=== PATIENT | female | born 1960 | race African-American/Black ===

== ENCOUNTER 2018-07-09 18:24 | Emergency (ER) | payer OTHER ==
[2018-07-09 18:54] VITALS: BP 128/84; PULSE 78; BMI 27.3
[2018-07-09 21:15] LABS: BASO % 0.5 % (0-2.0); EOS % 2.1 % (0-4.5); HEMATOCRIT 35.1 % (32.4-45.2); LYMPH % 38.4 % (8-40); MCH 28.2 pg (25.7-33.7); MCHC 34.1 g/dl (32.0-36.0); MEAN CELL VOLUME 82.8 fl (80-96); MEAN PLT VOLUME 7.4 fl (7.5-11.1); PLATELET COUNT 164 K/MM3 (134-434); RBC 4.24 M/mm3 (3.60-5.2); RDW 13.9 % (11.6-15.6); WHITE BLOOD COUNT 3.4 K/mm3 (4.0-10.0)
[2018-07-09 21:16] LABS: URINE APPEARANCE CLEAR; URINE BILIRUBIN NEGATIVE (<2.0 mg/dL); URINE COLOR LTYELLOW; URINE GLUCOSE (UA) NEGATIVE (NEGATIVE); URINE KETONE NEGATIVE (NEGATIVE); URINE LEUK ESTERASE NEGATIVE (NEGATIVE); URINE NITRITE NEGATIVE (NEGATIVE); URINE PROTEIN NEGATIVE (NEGATIVE); URINE UROBILINOGEN NEGATIVE mg/dL (0.2-1.0)
[2018-07-09 21:49] LABS: ALBUMIN 3.4 g/dl (3.4-5.0); ALK PHOS 61 U/L (45-117); ANION GAP 4 MMOL/L (8-16); BILIRUBIN,TOTAL 0.4 mg/dL (0.2-1); BLOOD UREA NITROGEN 13 mg/dL (7-18); CHLORIDE 108 mmol/L (98-107); CO2 29 mmol/L (21-32); CREATININE 0.9 mg/dL (0.55-1.3); GLUCOSE,RANDOM 92 mg/dL (74-106); POTASSIUM 4.6 mmol/L (3.5-5.1); SGOT/AST 18 U/L (15-37); SGPT/ALT 21 U/L (13-61); SODIUM 141 mmol/L (136-145); TOT PROT 6.8 g/dl (6.4-8.2)
--- NOTE | 2018-07-09 22:10 | PDOC ---
History of Present Illness - General Chief Complaint: Pain, Acute Stated Complaint: ABDOMINAL PAIN Time Seen by Provider: 07/09/18 19:56 History Source: Patient Exam Limitations: No Limitations Past History - Past Medical History Allergies/Adverse Reactions: Allergies Allergy/AdvReac Type Severity Reaction Status Date / Time No Known Drug Allergies Allergy Verified 07/09/18 18:50 POLLEN Allergy Mild SNEEZING Uncoded 07/09/18 18:50 Home Medications: Ambulatory Orders Tamoxifen Citrate 20 mg PO HS 12/30/14 levETIRAcetam [Keppra -] 500 mg PO BID 12/30/14 Cholecalciferol (Vitamin D3) [Vitamin D3] 1,000 unit PO HS 09/04/17 Vit B Comp/C/Folic/Iron/Vit E [Vitamin B Complex Tablet] 1 each PO DAILY Anemia: Yes (TREATED WITH IRON IN THE PAST) Asthma: No Cancer: Yes (RIGHT BREAST-12/2013) Cardiac Disorders: No CVA: No COPD: No CHF: No Dementia: No Diabetes: No GI Disorders: No Disorders: No HTN: No Hypercholesterolemia: Yes (DIET CONTROLLED) Liver Disease: No Seizures: Yes (DX 2002 S/P BRAIN TUMOR) Thyroid Disease: No - Surgical History Abdominal Surgery: No Appendectomy: No Cardiac Surgery: No Cholecystectomy: No Lung Surgery: No Neurologic Surgery: Yes (BRAIN TUMOR REMOVED-2002) Orthopedic Surgery: Yes (RIGHT SHOULDER ARTHROSCOPY 2014) - Immunization History Immunization Up to Date: Yes - Suicide/Smoking/Psychosocial Hx Smoking History: Never smoked Have you smoked in the past 12 months: No Hx Alcohol Use: Yes (OCCASIONAL) Drug/Substance Use Hx: No Substance Use Type: Alcohol Hx Substance Use Treatment: No *Physical Exam - Vital Signs Last Vital Signs Temp Pulse Resp BP Pulse Ox 97.9 F 78 18 128/84 100 07/09/18 18:51 07/09/18 18:51 07/09/18 18:51 07/09/18 18:51 07/09/18 18:51 - Physical Exam General Appearance: No: Apparent Distress Respiratory/Chest: positive: Lungs Clear, Normal Breath Sounds. negative: Respiratory Distress Cardiovascular: positive: Regular Rhythm, Regular Rate, S1, S2. negative: Murmur Gastrointestinal/Abdominal: positive: Normal Bowel Sounds, Soft. negative: Tender, Distended, Guarding, Rebound Musculoskeletal: negative: CVA Tenderness Neurologic: positive: Fully Oriented, Alert, Normal Mood/Affect Moderate Sedation - Procedure Monitoring Vital Signs: Procedure Monitoring Vital Signs Temperature 97.9 F 07/09/18 18:51 Pulse Rate 78 07/09/18 18:51 Respiratory Rate 18 07/09/18 18:51 Blood Pressure 128/84 07/09/18 18:51 O2 Sat by Pulse Oximetry (%) 100 07/09/18 18:51 ED Treatment Course - LABORATORY CBC & Chemistry Diagram: 07/09/18 21:08 07/09/18 21:08 - ADDITIONAL ORDERS Additional order review: Laboratory Results 07/09/18 07/09/18 21:08 21:08 Sodium 141 Potassium 4.6 Chloride 108 H Carbon Dioxide 29 Anion Gap 4 L BUN 13 Creatinine 0.9 Creat Clearance w eGFR > 60 Random Glucose 92 Calcium 9.0 Total Bilirubin 0.4 AST 18 ALT 21 Alkaline Phosphatase 61 Total Protein 6.8 Albumin 3.4 Urine Color Ltyellow Urine Appearance Clear Urine pH 8.0 D Ur Specific [place] 1.014 Urine Protein Negative Urine Glucose (UA) Negative Urine Ketones Negative Urine Blood Negative Urine Nitrite Negative Urine Bilirubin Negative Urine Urobilinogen Negative Ur Leukocyte Esterase Negative 07/09/18 21:08 RBC 4.24 MCV 82.8 MCHC 34.1 RDW 13.9 MPV 7.4 L Neutrophils % 49.0 D Lymphocytes % 38.4 D Monocytes % 10.0 D Eosinophils % 2.1 Basophils % 0.5 Medical Decision Making - Medical Decision Making 58 y/o F hx of brain tumor, breast CA s/p B/L mastectomies (in remission), seizures (on Keppra) presents wt LLQ abd pain radiating around whole abdomen x 2 weeks, worsening the past 2 days. Patient states it feels like "hunger pain". She has been eating food without improvement in pain. Denies fever, chills, sob , cp, n/v/d, black/bloody stools, constipation, urinary complaints. Patient is having regular bowel movements. Denies any prior abdominal surgeries. PE unremarkable; patient appears comfortable Labs reviewed and negative Less suspicious for any acute pathology given how well patient appears Patient advised follow-up with her PCP 07/09/18 22:05 *DC/Admit/Observation/Transfer Diagnosis at time of Disposition: Abdominal pain Qualifiers: Abdominal location: left lower quadrant Qualified Code(s): R10.32 - Left lower quadrant pain - Discharge Dispostion Disposition: HOME Condition at time of disposition: Good Decision to Admit order: No - Referrals Referrals: Hubert Crow MD [Primary Care Provider] - 3 days - Patient Instructions Printed Discharge Instructions: DI for Abdominal Pain-Adult Additional Instructions: Thank you for choosing [facility]. It was a pleasure taking care of you. You were seen here for abdominal pain Your labs here were unremarkable Please follow-up with your PCP in 3 days for further care Return to the Emergency Department if your symptoms worsen or persist, you have fever, shortness of breath, chest pain, severe abdominal pain, vomiting, black or bloody stools or other concerning symptoms. - Post Discharge Activity
[2018-07-09 22:16] VITALS: TEMP 97.8
== END 2018-07-09 22:39 | disposition home or self-care (01) ==
LOC: JER 18:24
DX: R10.32 Left lower quadrant pain (principal); Z85.3 Personal history of malignant neoplasm of breast; D49.6 Neoplasm of unspecified behavior of brain
CPT/HCPCS: 36415; 80053; 81003; 85025; 99282-25

== ENCOUNTER 2019-03-24 04:45 | Day surgery (SDC) | payer OTHER ==
[2019-03-21 08:49] VITALS: BMI 26.7
[2019-03-24] MEDS ORDERED: CEFAZOLIN 2 GM in DEXTROSE 5%-WATER - 100 ML IVPB ONE (07:15)
[2019-03-24] MEDS ORDERED: PHENAZOPYRIDINE HCL 100 MG TABLET (FP) PO ONE ×2 (07:15→07:50)
--- NOTE | 2019-03-24 07:33 | HP ---
History & Physical Update - History History: No Change - Physical Physical: No Change - Assessment Assessment: No Change - Plan Plan: No Change (No change since Cardiology clearance on 03/21 (Dr Tammy Song). No history of DVT/PE. Off Keppra, no seizures for "years".)
[2019-03-24] MEDS ORDERED: PROPOFOL 20 ML ONE (07:52)
[2019-03-24] MEDS ORDERED: SUCCINYLCHOLINE CHLORIDE 200 MG/10 ML SYRINGE ONE (07:52)
[2019-03-24] MEDS ORDERED: DESFLURANE GAS 240 ML BOTTLE IH ONE (07:52)
[2019-03-24] MEDS ORDERED: ROCURONIUM BROMIDE 50 MG/5 ML SYRINGE ONE (07:53)
[2019-03-24] MEDS ORDERED: MIDAZOLAM HCL 2 MG/2 ML SINGLE DOSE VIAL ONE (07:53)
[2019-03-24] MEDS ORDERED: LIDOCAINE HCL/PF 2% SDV 5ML VIAL ONE (07:55)
[2019-03-24] MEDS ORDERED: IBUPROFEN 800 MG/8 ML IJ IVPB PRN (08:05)
[2019-03-24] MEDS ORDERED: LACTATED RINGERS SOLUTION 1,000 ML IV SCH (08:15)
[2019-03-24] MEDS ORDERED: ceFAZolin SODIUM 1 GM VIAL IVPB ONE (08:25)
[2019-03-24] MEDS ORDERED: BUPIVACAINE HCL/PF 0.5% (5MG/ML) 10 ML VIAL IJ ONE ×2 (08:27→10:05)
[2019-03-24] MEDS ORDERED: ONDANSETRON 4 MG/2 ML VIAL IVPUSH PRN ×2 (08:50→08:51)
[2019-03-24] MEDS ORDERED: oxyCODONE HCL 5 MG TABLET PO PRN (08:50)
[2019-03-24] MEDS ORDERED: PROMETHAZINE HCL 25 MG/1 ML VIAL IVPUSH PRN (08:50)
[2019-03-24] MEDS ORDERED: DEXAMETHASONE SOD PHOSPHATE 4 MG/1 ML VIAL IVPUSH PRN (08:51)
[2019-03-24] MEDS ORDERED: PROMETHAZINE HCL 25 MG/1 ML VIAL IVPB PRN (08:51)
[2019-03-24] MEDS ORDERED: HYDROmorphone *PCA* 10MG/50ML DISP.SYRIN PCA SCH (09:00)
[2019-03-24] MEDS ORDERED: GLYCOPYRROLATE 0.2 MG/1 ML VIAL ONE (09:42)
[2019-03-24] MEDS ORDERED: NEOSTIGMINE METHYLSULFATE 0.5 MG/ML - 10 ML MDV ONE (09:42)
[2019-03-24] MEDS ORDERED: KETOROLAC TROMETHAMINE 30 MG/1 ML VIAL ONE (09:42)
[2019-03-24] MEDS ORDERED: HYDROmorphone *PCA* 10MG/50ML DISP.SYRIN PCA ONE (10:50)
[2019-03-24] MEDS ORDERED: HYDROmorphone *PCA* 10MG/50ML DISP.SYRIN ONE (10:54)
[2019-03-24] MEDS ORDERED: SIMETHICONE 80 MG TAB.CHEW (FP) PO PRN (11:04)
[2019-03-24] MEDS ORDERED: RANITIDINE HCL 150 MG TABLET (FP) PO PRN (11:05)
--- NOTE | 2019-03-24 11:14 | SURG ---
Surgery Personnel Generalist Manager Note Personnel Generalist Manager: Aleta Alicea PA-C (Suzy) Date of Service: 03/24/19 Diagnosis: Endometrial hyperplasia, h/o breast cancer Procedure: Operation: Robotic hysterectomy, bilateral salpingectomy I was present for the entirety of the operative procedure. For further detail, please refer to operative report. Visit type - Case Type Case Type: Scheduled - Emergency Emergency Visit: No - New patient This patient is new to me today: Yes Date on this admission: 03/24/19 - Critical Care Critical Care patient: No
--- NOTE | 2019-03-24 11:14 | OP ---
Operative Note - Note: Operative Date: 03/24/19 Pre-Operative Diagnosis: Endometrial hyperplasia, h/o breast cancer Operation: Robotic hysterectomy, bilateral salpingectomy Findings: as dictated Post-Operative Diagnosis: Same as Pre-op Surgeon: Lilo Hines Business Line Controller: Aleta Alicea Anesthesiologist/DIRECTOR PEDIATRIC: Sina Oneal Anesthesia: General, Local (15cc .5% Marcaine injected to port sites at completion of case) Specimens Removed: uterus and bilateral fallopian tubes Estimated Blood Loss (mls): 50 (ml) Drains, Volume Out (mls): 200 (cc orange urine (pyridium)) Fluid Volume Replaced (mls): 500 (ml LR) Operative Report Dictated: Yes
[2019-03-24 11:30] LABS: HEMATOCRIT 33.6 % (32.4-45.2); HEMOGLOBIN 10.9 GM/dL (10.7-15.3); MCH 27.3 pg (25.7-33.7); MCHC 32.5 g/dl (32.0-36.0); MEAN CELL VOLUME 83.9 fl (80-96); MEAN PLT VOLUME 8.1 fl (7.5-11.1); PLATELET COUNT 139 K/MM3 (134-434); RBC 4.01 M/mm3 (3.60-5.2); RDW 14.1 % (11.6-15.6); WHITE BLOOD COUNT 4.9 K/mm3 (4.0-10.0)
[2019-03-24 18:54] LABS: BLOOD UREA NITROGEN 14.6 mg/dL (7-18); CALCIUM 9.3 mg/dL (8.5-10.1); CREATININE 0.8 mg/dL (0.55-1.3); POTASSIUM 4.6 mmol/L (3.5-5.1)
[2019-03-24 19:04] LABS: BASO % 0.1 % (0-2.0); EOS % 0.1 % (0-4.5); HEMATOCRIT 34.8 % (32.4-45.2); LYMPH % 10.9 % (8-40); MCH 26.9 pg (25.7-33.7); MCHC 31.7 g/dl (32.0-36.0); MEAN CELL VOLUME 84.8 fl (80-96); MEAN PLT VOLUME 8.2 fl (7.5-11.1); MONO % 3.5 % (3.8-10.2); NEUT % 85.4 % (42.8-82.8); PLATELET COUNT 141 K/MM3 (134-434); RBC 4.11 M/mm3 (3.60-5.2); RDW 14.5 % (11.6-15.6); WHITE BLOOD COUNT 6.7 K/mm3 (4.0-10.0)
[2019-03-24] MEDS: CEFAZOLIN 1 GM in DEXTROSE 5%-WATER - 50 ML IVPB SCH (19:37)
[2019-03-24] MEDS ORDERED: TAMOXIFEN CITRATE 10 MG TABLET PO SCH (22:00)
[2019-03-25] MEDS: CEFAZOLIN 1 GM in DEXTROSE 5%-WATER - 50 ML IVPB SCH (01:38)
[2019-03-25 06:21] VITALS: BP 123/55; PULSE 82; TEMP 99.2
[2019-03-25] MEDS ORDERED: HYDROmorphone HCL 2 MG TABLET PO PRN (08:00)
[2019-03-25] MEDS ORDERED: oxyCODONE HCL 5 MG TABLET PO PRN ×2 (08:00→08:55)
--- NOTE | 2019-03-25 08:12 | PN ---
Progress Note (short form) - Note Progress Note: POD 1, s/p Robotic hysterectomy, bilateral salpingectomy Pt seen and examined this Am. Reports she is feeling well. Has been oob to the restroom, voiding without issue. minimal vaginal bleeding. Tolerating PO. Denies n/v/d, cp/sob. Vital Signs Temp 99.2 F 03/25/19 06:00 Pulse 82 03/25/19 06:00 Resp 18 03/25/19 06:00 BP 123/55 L 03/25/19 06:00 Pulse Ox 100 03/24/19 21:00 Intake & Output 03/24/19 03/24/19 03/25/19 11:59 23:59 11:59 Intake Total 800 1020 1175 Output Total 250 500 400 Balance 550 520 775 Intake: IV 800 1125 Lactated Ringers Solution 1125 1,000 ml @ 125 mls/hr IV ASDIR CONNIE Rx#: [id number] IVPB 50 50 Oral 970 Output: Urine 200 500 400 Seth 300 400 Estimated Blood Loss 50 Other: Voiding Method Indwelling Catheter CBC, BMP 03/25/19 07:45 03/25/19 07:45 Gen: awake, alert, nad Resp: unlabored on RA Abdo: soft, nt/nd, all incisions with dressings in place, c/d/i. A/P: 58 y/o F w/ PMHx ?meningioma s/p resection, breast cancer s/p mastectomy with reconstruction, endometrial hyperplasia, now POD 1, s/p Robotic hysterectomy, bilateral salpingectomy. VSS, labs yesterday evening No issues overnight, pain controlled -AM labs pending -stable -[employer]OCIATE d/c'ed (pt had 0/0 attempts overnight) -Oral pain regimen in place -Plan for d/c later today d/w attending Dr Hines
[2019-03-25 08:24] LABS: BASO % 0.3 % (0-2.0); EOS % 0.6 % (0-4.5); HEMATOCRIT 29.9 % (32.4-45.2); HEMOGLOBIN 9.6 GM/dL (10.7-15.3); LYMPH % 26.3 % (8-40); MCHC 32.2 g/dl (32.0-36.0); MEAN CELL VOLUME 83.8 fl (80-96); MEAN PLT VOLUME 8.1 fl (7.5-11.1); MONO % 7.1 % (3.8-10.2); NEUT % 65.7 % (42.8-82.8); PLATELET COUNT 121 K/MM3 (134-434); RBC 3.57 M/mm3 (3.60-5.2); RDW 14.4 % (11.6-15.6)
[2019-03-25 08:41] LABS: BLOOD UREA NITROGEN 13.4 mg/dL (7-18); CALCIUM 8.4 mg/dL (8.5-10.1); CREATININE 0.6 mg/dL (0.55-1.3); POTASSIUM 3.7 mmol/L (3.5-5.1)
[2019-03-25] MEDS ORDERED: CEFAZOLIN 1 GM/D5W 1 GM/50 ML BAG IVPB SCH (09:23)
[2019-03-25] MEDS ORDERED: PCA PUMP KEY 1 EACH EACH ONE (10:31)
--- NOTE | 2019-03-26 09:46 | PATH ---
Surgical Pathology Report Patient Name: CHRISTINA THOMPSON [facility]. Rec. #: [id number] /Age/Gender: 1960 (Age: 58) / F Account: [id number] Location: AMBULATORY SURG Taken: 03/24/2019 Received: 03/24/2019 Reported: 03/26/2019 Physicians: Lilo Hines M.D. Specimen(s) Received UTERUS AND BILATERAL FALLOPIAN TUBES Clinical History Polyp of corpus uterine with endometrial hyperplasia, robotic laparoscopic total hysterectomy, bilateral salpingectomy Final Diagnosis UTERUS AND BILATERAL FALLOPIAN TUBES, HYSTERECTOMY AND BILATERAL SALPINGECTOMY: LEIOMYOMATA. ENDOMETRIAL POLYPS. ADENOMYOSIS. CERVIX WITH CHRONIC CERVICITIS AND SQUAMOUS METAPLASIA. PORTION OF FALLOPIAN TUBE WITH NO DIAGNOSTIC ABNORMALITIES. Electronically Signed Alex Ocasio M.D. Gross Description Received in formalin labeled "uterus and bilateral fallopian tubes," is a 257 g uterus with an attached cervix. The uterus measures 11.5cm from fundus to ectocervix, 7.0 cm from anterior to posterior, and 4.5 cm from left to right. The serosa is gomez-pink and smooth. The attached cervix measures 3 cm in length and averages 3.1 cm in diameter. The ectocervix is gomez-pink glistening. The endocervix is unremarkable. The endometrial cavity measures 5 cm in length and 4.5 cm from cornu to cornu. The endometrium is gomez-red and measures up to 0.2 cm in thickness. Focal elevated thickened endometrium (0.3 cm in thickness) at posterior endometrium identified. This area measures 1.5 cm in greatest dimension. Also a 3.0 cm polypoid lesion with smooth surface is identified. The myometrium displays multiple submucosal, intramural and submucosal nodules, ranging from 0.5cm to 3.5 in greatest dimension. The cut surface of the nodules is gomez and rubbery with whorled architecture. No necrosis, discoloration, or hemorrhage present. The remaining myometrium is gomez-pink and measures up to 2.3 cm in thickness. Portion of tubule structure measuring 2 cm in length and 0.4 cm in diameter is attached at the right side of the serosa. In the container separate two portions of soft tissue measuring 1.5 x 0.2 x 0.2 and 1.5 x 1 x 0.3 cm, respectively, are present. The larger one appears to be a portion of fimbria. Sheriff Detective sections are submitted in 24 cassettes as follows: 1: Left parametrium. 2: Right parametrium. 3-6: Anterior cervix; 7-8: Posterior cervix. 9-13: Anterior endometrium; 14-16- posterior endometrium thickened area, entirely submitted; 17-19: Polypoid lesion with smooth surface. 20-22: nodules, the largest nodule in cassette 20. 23: Separate smaller portion of soft tissue and segment of tubular structure attached to the uterus. 24: Separate portion of fimbria KWS/03/25/2019 sulki03/25/2019
--- NOTE | 2019-03-26 21:42 | OP ---
DATE OF OPERATION: 03/24/2019 PREOPERATIVE DIAGNOSES: Endometrial polyp, leiomyomatous uterus and endometrial hyperplasia and adenomyosis. OPERATION: Laparoscopic robotic total hysterectomy and bilateral salpingectomy. POSTOPERATIVE DIAGNOSES: Endometrial polyp, leiomyomatous uterus and endometrial hyperplasia and adenomyosis. SURGEON: Mario Hines MD ENVIRONMENTAL CONSTRUCTION ENGINEER: PAULA Rodrigues FINDINGS: Uterus approximately 12 cm in size. PROCEDURE: Patient was taken to the operating room, placed in dorsal lithotomy position, prepped and draped in the usual sterile fashion. Timeout was performed in accordance with hospital regulation. Speculum was placed in the vagina. Cervix seen and grasped with a single-tooth tenaculum. Cervix then dilated to accommodate the uterine manipulator. Uterine manipulator was placed around the cervix and speculum was then removed and Seth catheter was then inserted. Attention was then drawn to the umbilicus where an 8-mm umbilical incision was made. Veress needle was inserted into the cavity. Approximately 3-4 L of CO2 was insufflated. Veress needle was then removed, and an 8-mm trocar was then introduced. Laparoscope and camera were used to visualize a uterus which was enlarged and about 12 cm and with multiple myomas. The trocars were then placed, 2 on the left and 2 on the right, about 10 cm parallel to the umbilical incision. Scalpel was then used to make a skin incision, and trocar was inserted under direct visualization. A 5-mm right upper abdomen incision was then made for the AirSeal cannula, was inserted under direct visualization. Two trocars were then placed on the left side 10 cm apart, parallel to the umbilical incision. All trocars were inserted under direct visualization without injury to the underlying viscera. The patient was placed in steep Trendelenburg. The da Wicho robot was then side docked to the patient's bedside, and trocars were then inserted onto the da Wicho robot. Laparoscope and camera attached. The vessel sealer was inserted on the left, and tenaculum and EndoShears inserted on the right. After sufficient placement of all instruments above the uterus, attention was then drawn to the console where control of the robot was done. The tenaculum was then used to grasp the uterus to the right side. Utero-ovarian ligament was identified and clamped and cut using vessel sealer. Vesicouterine reflection was then entered using EndoShears, and bladder was bluntly dissected out of the operative field. Uterines were then grasped and coagulated. Cardinal ligaments identified and clamped and coagulated all on the left side. Attention was then drawn to the right side where tenaculum was then used to move the uterus to the left side, and the right utero-ovarian ligament was identified and clamped and cut. Uterine arteries were identified, clamped, and cut. Cardinal ligaments, broad ligaments were all clamped and cut down to the level of the cervix. The EndoShears were then used to enter the vagina, and then, EndoShears were used to cut the cervix away from the vagina. Tubes and ovaries were noted to be normal, and the uterus was then exteriorized out of the pelvis through the vagina. Tubes were bilaterally grasped and were submitted to pathology after vessel sealer was used to cut and coagulate the left and right tubes. Ovaries were in place and noted to be normal. Peristalsis of both ureters was identified. The V-Loc suture was then passed into the abdomen, and the robot was then used to close the vaginal cuff in a continuous fashion using 2-0 V-Loc suture. Hemostasis was achieved. Irrigation done. Needle was then removed from the abdomen, and all trocars were removed. All incisions were closed using 4-0 Biosyn suture in subcuticular fashion. Wound was washed and dressed. Patient had tolerated the procedure well and was taken to recovery in stable condition. Estimated blood loss about 30 mL. MARIO HINES M.D. [id number]
== END 2019-03-25 11:00 | disposition home or self-care (01) ==
LOC: JASUSAT 04:45 → J3W 13:34 → JASUSAT 03-25 11:00
PROVIDERS: ATTEND Obstetrics & Gynecology
PROC: 8E0W3CZ Robotic Assisted Procedure of Trunk Region, Percutaneous Approach (ICD-10-PCS; 2019-03-24)
PROC: 0UT9FZZ Resection of Uterus, Via Natural or Artificial Opening With Percutaneous Endoscopic Assistance (ICD-10-PCS; principal; 2019-03-24 08:00)
PROC: 0UT7FZZ Resection of Bilateral Fallopian Tubes, Via Natural or Artificial Opening With Percutaneous Endoscopic Assistance (ICD-10-PCS; 2019-03-24 08:00)
DX: D25.9 Leiomyoma of uterus, unspecified (principal); N80.0 Endometriosis of uterus; N84.0 Polyp of corpus uteri; Z85.3 Personal history of malignant neoplasm of breast
CPT/HCPCS: 58552; S2900; 36415; 80048; 85025; 85027; 86850; 86900; 86901; 88309-TC; 94760

== ENCOUNTER 2020-02-23 08:50 | Emergency (ER) | payer BC, OTHER ==
[2020-02-23 08:56] VITALS: BP 135/77; PULSE 77; TEMP 98.2; BMI 25.8
[2020-02-23 09:49] LABS: PH,URINE 6.5 (5.0-8.0); URINE APPEARANCE Clear; URINE BILIRUBIN Negative (NEGATIVE); URINE COLOR Yellow; URINE GLUCOSE (UA) Negative (NEGATIVE); URINE KETONE Negative (NEGATIVE); URINE LEUK ESTERASE Negative (NEGATIVE); URINE NITRITE Negative (NEGATIVE); URINE PROTEIN Negative (NEGATIVE); URINE UROBILINOGEN 0.2 mg/dL (0.2-1.0)
[2020-02-23] MEDS ORDERED: METOCLOPRAMIDE HCL INJECTION 10 MG/2 ML VIAL IVPUSH ONE (10:57)
[2020-02-23] MEDS ORDERED: ACETAMINOPHEN 1000 MG/100 ML VIAL (NON FORMULARY) IVPB ONE (10:57)
[2020-02-23] MEDS ORDERED: ONDANSETRON 4 MG/2 ML VIAL IVPUSH ONE (10:58)
[2020-02-23] MEDS ORDERED: FAMOTIDINE 20 MG/50 ML IVPB 20 MG/50 ML MG IVPB ONE ×2 (10:59→11:56)
--- NOTE | 2020-02-23 11:28 | PDOC ---
History of Present Illness - General Chief Complaint: Pain Stated Complaint: ABD PAIN/ BACK PAIN Time Seen by Provider: 02/23/20 10:05 History Source: Patient Exam Limitations: No Limitations - History of Present Illness Initial Comments: 02/23/20 11:22 59yo F with PMH breast cancer in remission s/p lumpectomy/chemo/radiation (reported normal imaging and labs 6 months prior), seizure disorder (no longer on meds), hysterectomy and b/l salpingo-oopherectomy presents with one day of LLQ pain radiating to entire abdomen, chest, back, and left leg, as well as inability to tolerate PO since yesterday. States the pain is constant, sharp, severe, unlike any pain she has had before. Associated with inability to tolerate solids or liquids. Vomits everything she eats or drinks. Denies f/c, SOB, leg swelling, weight loss, urinary symptoms. States urine may be darker than usual. No sick contacts/travel. Endorses 10 pound weight gain since the start of the pandemic she attributes to staying at home all day. ROS GENERAL/CONSTITUTIONAL: No fever or chills. HEAD, EYES, EARS, NOSE AND THROAT: No change in vision. No ear pain or discharge. No sore throat. CARDIOVASCULAR: chest pain. no shortness of breath RESPIRATORY: No cough, wheezing, or hemoptysis. GASTROINTESTINAL: nausea, vomiting. No diarrhea or constipation. GENITOURINARY: No dysuria, frequency, or hematuria MUSCULOSKELETAL: back and left leg pain SKIN: No rash NEUROLOGIC: No headache, vertigo, loss of consciousness, or change in strengt h/sensation. ENDOCRINE: No increased thirst. No abnormal weight change HEMATOLOGIC/LYMPHATIC: No anemia, easy bleeding, or history of blood clots. ALLERGIC/IMMUNOLOGIC: No hives or skin allergy. PE GENERAL: Awake, alert, and fully oriented, in no acute distress HEAD: No signs of trauma, normocephalic, atraumatic EYES: PERRLA, EOMI, sclera anicteric, conjunctiva clear ENT: Auricles normal inspection, hearing grossly normal, nares patent, oropharynx clear without exudates. Moist mucosa NECK: Normal ROM, supple, no lymphadenopathy, JVD, or masses LUNGS: No distress, speaks full sentences, clear to auscultation bilaterally HEART: Regular rate and rhythm, normal S1 and S2, no murmurs, rubs or gallops, peripheral pulses normal and equal bilaterally. ABDOMEN: Soft, diffusely tender to deep palpation, worse in LLQ. Normal bowel sounds. No guarding, no rebound. BACK: no midline, paraspinal, or CVA tenderness EXTREMITIES : Normal inspection, Normal range of motion, no edema. No clubbing or cyanosis. NEUROLOGICAL: Cranial nerves II through XII grossly intact. Normal speech, normal gait, no focal sensorimotor deficits SKIN: Warm, Dry, normal turgor, no rashes or lesions noted MDM 59yo F with PMH breast cancer in remission s/p lumpectomy/chemo/radiation (r eported normal imaging and labs 6 months prior), seizure disorder (no longer on meds), hysterectomy and b/l salpingo-oopherectomy presents with one day of LLQ pain radiating to entire abdomen, chest, back, and left leg, as well as inability to tolerate PO since yesterday. Vitals reassuring. Exam notable for generalized abdominal tenderness, worse in LLQ. Differential includes diverticulitis, bowel obstruction, ACS. -EKG -CT A/P with IV contrast (cannot drink PO contrast) -CBC, CMP, lipase, trops -IV tylenol, pepcid, zofran 02/23/20 14:39 EKG: NSR with old LBBB (got [address] Munoz that showed it) CT A/P: no acute pathology. gallstones and thickened bladder wall Labs: unremarkable Pain improved with medication. Adbomen soft, non-tender. Tolerating liquids and solid foods. DC home with PCP follow up and return precautions. Prescriptions for glycerin suppository and Pepcid for two weeks. Patient understands and agrees to plan. Past History - Medical History Allergies/Adverse Reactions: Allergies Allergy/AdvReac Type Severity Reaction Status Date / Time No Known Drug Allergies Allergy Verified 02/23/20 08:53 POLLEN Allergy Mild SNEEZING Uncoded 02/23/20 08:53 Home Medications: Ambulatory Orders Tamoxifen Citrate 20 mg PO HS 12/30/14 Famotidine 20 mg PO DAILY #14 tablet 02/23/20 Glycerin Suppository Adult - 1 each RC DAILY #14 supp.rect 02/23/20 Anemia: Yes (TREATED WITH IRON IN THE PAST) Asthma: No Cancer: Yes (RIGHT BREAST-12/2013) Cardiac Disorders: No CVA: No COPD: No CHF: No Dementia: No Diabetes: No GI Disorders: No Disorders: No HTN: No Hypercholesterolemia: Yes (DIET CONTROLLED) Liver Disease: No Seizures: Yes (DX 2002 S/P BRAIN TUMOR) Thyroid Disease: No - Surgical History Abdominal Surgery: No Appendectomy: No Cardiac Surgery: No Cholecystectomy: No Lung Surgery: No Neurologic Surgery: Yes (BRAIN TUMOR REMOVED-2002) Orthopedic Surgery: Yes (RIGHT SHOULDER ARTHROSCOPY 2014) - Immunization History Immunization Up to Date: Yes - Psycho-Social/Smoking History Smoking History: Never smoked Have you smoked in the past 12 months: No - Substance Abuse Hx (Audit-C & DAST Scrn) How often the patient has a drink containing alcohol: Never Score: In Men: 4 or > Positive; In Women: 3 or > Positive: 0 Screen Result (Pos requires Nsg. Audit-10AR): Negative In the last yr the pt used illegal drug/Rx for NonMed reason: No Score: Yes response is considered Positive: 0 Screen Result (Positive result requires Nsg. DAST-10): Negative *Physical Exam - Vital Signs Last Vital Signs Temp Pulse Resp BP Pulse Ox 98.2 F 77 18 135/77 99 02/23/20 08:55 02/23/20 08:55 02/23/20 08:55 02/23/20 08:55 02/23/20 08:55 ED Treatment Course - LABORATORY CBC & Chemistry Diagram: 02/23/20 11:10 02/23/20 11:10 - ADDITIONAL ORDERS Additional order review: Laboratory Results 02/23/20 09:00 Urine Color Yellow Urine Appearance Clear Urine pH 6.5 Ur Specific Omega >= 1.030 Urine Protein Negative Urine Glucose (UA) Negative Urine Ketones Negative Urine Blood Negative Urine Nitrite Negative Urine Bilirubin Negative Urine Urobilinogen 0.2 Ur Leukocyte Esterase Negative - RADIOLOGY Radiology Studies Ordered: Category Date Time Status ABDOMEN & PELVIS CT WITH CONTR [CT] Stat CT Scan 02/23/20 10:52 Ordered Discharge - Discharge Information Problems reviewed: Yes Clinical Impression/Diagnosis: Abdominal pain Qualifiers: Abdominal location: unspecified location Qualified Code(s): R10.9 - Unspecified abdominal pain Condition: Improved Disposition: HOME - Admission No - Follow up/Referral Referrals: Hubert Crow MD [Primary Care Provider] - - Patient Discharge Instructions Patient Printed Discharge Instructions: DI for Abdominal Pain-Adult Additional Instructions: You were seen in the ER for abdominal pain and vomitting. You were given anti- nausea, anti-acid, and pain medication (tylenol), which improved your symptoms. Your labwork was normal. Your CT scan of your abdomen and pelvis showed no acute problem. It did show gallstones and thickened bladder wall, which you can follow up about with your primary care doctor. You were able to eat and drink and your pain improved, so you can safely go home. Please follow up with your primary care doctor within one week for these symptoms. We are prescribing Pepcid (famotidine) 20mg which you can take daily for 14 days, which may improve your symptoms. We are also prescribing glycerin suppositories, which may help you move your bowels better. Please return to the ER for continued or worsening symptoms, fever, chills, vomiting, chest pain, blood in you stool, or any other reason. - Post Discharge Activity
--- NOTE | 2020-02-23 11:46 | PDOC ---
Documentation entered by Shaista Garcia SCRIBE, acting as scribe for Agnieszka Ag MD. Agnieszka Ag MD: This documentation has been prepared by the daphneyibeJose Ana, SCRIBE, under my direction and personally reviewed by me in its entirety. I confirm that the documentation accurately reflects all work, treatment, procedures, and medical decision making performed by me. Attending Attestation - Resident Resident Name: J LuisnghiacharlotteMartin - ED Attending Attestation I have performed the following: I have examined & evaluated the patient, The case was reviewed & discussed with the resident, I agree w/resident's findings & plan, Exceptions are as noted - HPI HPI: 02/23/20 10:12 Patient is a 59 year old female with a significant past medical history of brain tumor, breast cancer s/p lumpectomy/chemo/radiation, and seizure disorder, who presents to the ED with abdominal pain, chest pain, back pain, left leg pain, and inability to tolerate PO x1 day. Patient describes the pain as "severe, constant, and sharp". Patient stated the pain began in the left lower quadrant of the abdomen and has radiated to other parts of her body. Patient disclosed that any time she tries to eat or drink she ends up vomiting. Patient disclosed she has gained 10 pounds within the last few months and said its associated with staying home due to the pandemic. States never had pain like this before, last colonoscopy was about 5 years ago and was normal. Patient denies: weight loss, fever, chills, SOB, lower extremity edema, recent travel, contacts with sick people, any other related symptoms. Allergies: NKDA - Physicial Exam PE: 02/23/20 11:38 GENERAL: nontoxic-appearing, A/Ox4, no distress, answers questions appropriately HEENT: PERRLA, EOMI, moist mucous membranes NECK/BACK: no midline ttp, no spinal stepoff or deformity, no hematoma, full ROM, neck supple CARDIOVASCULAR: regular rate/rhythm, no MGR, strong peripheral pulses, capillary refill <2 seconds, extremities wwp, no edema LUNGS/RESPIRATORY: no respiratory distress, CTAB GI/ABDOMEN: symmetric [id number], normoactive BS, soft, LLQ ttp, no guarding or rebound, no midline pulsatile masses : no CVA tenderness MSK/EXTREMITIES: no muscle atrophy, no acute deformity SKIN: warm and dry, no pallor, no jaundice, no rash, no pathologic-appearing bruising, no skin breakdown, no cuts, no lesions NEUROLOGICAL: GCS 15, CN II-XII grossly intact, 5/5 strength proximally and distally, no facial droop - Medical Decision Making 02/23/20 11:45 59YOF with h/o breast cancer p/w LLQ pain. Initial Vital Signs Temp Pulse Resp BP Pulse Ox 98.2 F 77 18 135/77 99 02/23/20 08:55 02/23/20 08:55 02/23/20 08:55 02/23/20 08:55 02/23/20 08:55 DDX IBNLT: most likely diverticulitis wwo abscess or perforation, also possible UTI/pyelonephritis, colitis, ovarian torsion, PID, TOA, ovarian cyst, malignancy, hernia, AAA/AD, pancreatitis, appendicitis, gastritis, PUD, ACS, renal colic, SBO, bowel ischemia, bowel perforation, cholecystitis, mesenteric adenitis, musculoskeletal, constipation, etc. Provider Orders Category Date Time Status ABDOMEN & PELVIS CT WITH CONTR [CT] Stat CT Scan 02/23/20 10:52 Completed EKG [ELECTROCARDIOGRAM] [CARD] Stat Cardiology 02/23/20 10:58 Ordered EKG needed NOW Care 02/23/20 10:58 Completed CARDIAC PROFILE ([facility]) Stat Lab 02/23/20 11:10 Completed CBC WITH DIFFERENTIAL Stat Lab 02/23/20 11:10 Completed COMP METABOLIC PANEL Stat Lab 02/23/20 11:10 Completed LIPASE Stat Lab 02/23/20 11:10 Completed UA ([facility]) ONLY Stat Lab 02/23/20 09:00 Completed Acetaminophen Injection [Ofirmev Injection -] Medication 02/23/20 10:57 Discontinued 1,000 mg IVPB ONCE ONE Famotidine 20 mg/50 ml Ivpb [Pepcid 20 mg Premixed Ivpb Medication 02/23/20 10:59 Discontinued -] 20 mg in 50 ml IVPB ONCE Famotidine 20 mg/50 ml Ivpb [Pepcid 20 mg Premixed Ivpb Medication 02/23/20 11:56 Discontinued -] 20 mg in 50 ml IVPB UD Metoclopramide HCl Injection [Reglan Injection -] Medication 02/23/20 10:57 Discontinued 10 mg IVPUSH ONCE ONE Ondansetron Injection [Zofran Injection] Medication 02/23/20 10:58 Discontinued 4 mg IVPUSH ONCE ONE Urine Culture [URINE CULTURE] Stat Micro 02/23/20 09:00 Received Medications Discontinued Medications Generic Name Dose Route Start Last Admin Trade Name Nereida PRN Reason Stop Dose Admin Acetaminophen 1,000 mg 02/23/20 10:57 02/23/20 12:01 Ofirmev Injection - IVPB 02/23/20 10:58 1,000 mg ONCE ONE Administration Famotidine/Sodium Chloride 20 mg in 50 mls @ 100 mls/hr 02/23/20 10:59 02/23/20 12:01 Pepcid 20 Mg Premixed Ivpb - IVPB 02/23/20 11:28 100 mls/hr ONCE ONE Administration Famotidine/Sodium Chloride Confirm 02/23/20 11:56 Pepcid 20 Mg Premixed Ivpb - Administered 02/23/20 11:57 Dose 20 mg in 50 mls @ ud IVPB .STK-MED ONE Metoclopramide HCl 10 mg 02/23/20 10:57 02/23/20 12:11 Reglan Injection - IVPUSH 02/23/20 10:58 Not Given ONCE ONE Ondansetron HCl 4 mg 02/23/20 10:58 02/23/20 12:01 Zofran Injection IVPUSH 02/23/20 10:59 4 mg ONCE ONE Administration Lab Results WBC 5.8 K/mm3 (4.0-10.0) 02/23/20 11:10 RBC 5.01 M/mm3 (3.60-5.2) 02/23/20 11:10 Hgb 13.4 GM/dL (10.7-15.3) 02/23/20 11:10 Hct 41.6 % (32.4-45.2) D 02/23/20 11:10 MCV 83.2 fl (80-96) 02/23/20 11:10 MCH 26.8 pg (25.7-33.7) 02/23/20 11:10 MCHC 32.3 g/dl (32.0-36.0) 02/23/20 11:10 RDW 14.5 % (11.6-15.6) 02/23/20 11:10 Plt Count 181 K/MM3 (134-434) D 02/23/20 11:10 MPV 8.3 fl (7.5-11.1) 02/23/20 11:10 Absolute Neuts (auto) 4.7 K/mm3 (1.5-8.0) 02/23/20 11:10 Neutrophils % 80.1 % (42.8-82.8) D 02/23/20 11:10 Lymphocytes % 15.1 % (8-40) D 02/23/20 11:10 Monocytes % 4.1 % (3.8-10.2) 02/23/20 11:10 Eosinophils % 0.1 % (0-4.5) D 02/23/20 11:10 Basophils % 0.6 % (0-2.0) 02/23/20 11:10 Nucleated RBC % 0 % (0-0) 02/23/20 11:10 Sodium 139 mmol/L (136-145) 02/23/20 11:10 Potassium 5.0 mmol/L (3.5-5.1) 02/23/20 11:10 Chloride 105 mmol/L (98-107) 02/23/20 11:10 Carbon Dioxide 26 mmol/L (21-32) 02/23/20 11:10 Anion Gap 8 MMOL/L (8-16) 02/23/20 11:10 BUN 10.9 mg/dL (7-18) 02/23/20 11:10 Creatinine 0.7 mg/dL (0.55-1.3) 02/23/20 11:10 Est GFR (CKD-EPI)AfAm 109.91 02/23/20 11:10 Est GFR (CKD-EPI)NonAf 94.84 02/23/20 11:10 Random Glucose 106 mg/dL (74-106) 02/23/20 11:10 Calcium 10.4 mg/dL (8.5-10.1) H 02/23/20 11:10 Total Bilirubin 0.6 mg/dL (0.2-1) 02/23/20 11:10 AST 20 U/L (15-37) 02/23/20 11:10 ALT 21 U/L (13-61) 02/23/20 11:10 Alkaline Phosphatase 70 U/L (45-117) 02/23/20 11:10 Creatine Kinase 149 U/L (26-192) 02/23/20 11:10 Troponin I < 0.02 ng/ml (0.00-0.05) 02/23/20 11:10 Total Protein 8.6 g/dl (6.4-8.2) H 02/23/20 11:10 Albumin 4.0 g/dl (3.4-5.0) 02/23/20 11:10 Lipase 121 U/L (73-393) 02/23/20 11:10 Urine Color Yellow 02/23/20 09:00 Urine Appearance Clear 02/23/20 09:00 Urine pH 6.5 (5.0-8.0) 02/23/20 09:00 Ur Specific [place] >= 1.030 (1.010-1.035) 02/23/20 09:00 Urine Protein Negative (NEGATIVE) 02/23/20 09:00 Urine Glucose (UA) Negative (NEGATIVE) 02/23/20 09:00 Urine Ketones Negative (NEGATIVE) 02/23/20 09:00 Urine Blood Negative (NEGATIVE) 02/23/20 09:00 Urine Nitrite Negative (NEGATIVE) 02/23/20 09:00 Urine Bilirubin Negative (NEGATIVE) 02/23/20 09:00 Urine Urobilinogen 0.2 mg/dL (0.2-1.0) 02/23/20 09:00 Ur Leukocyte Esterase Negative (NEGATIVE) 02/23/20 09:[address] WITH CONTR HISTORY PROVIDED: Left lower quadrant pain TECHNIQUE: Sequential axial images were obtained from the domes of the diaphragm through the symphysis pubis following the administration of intravenous contrast material. There are atelectatic changes at both lung bases. The patient is S/P bilateral breast implants. The liver, spleen, pancreas, adrenal glands and kidneys demonstrate no significant abnormalities. The gallbladder is somewhat distended and does contain multiple gallstones. There is no evidence of intra- abdominal or retroperitoneal lymphadenopathy or fluid collections. There is no evidence of pneumoperitoneum, bowel obstruction or intra-abdominal abscess. There is no CT evidence of acute appendicitis or diverticulitis. Examination of the pelvis demonstrates no evidence of pelvic masses, fluid collections or lymphad enopathy. There is thickening of the paiz of urinary bladder which may related to underfilling. The possibility of cystitis cannot be excluded. The uterus has been removed. Is no evidence of acute bony pathology. IMPRESSION: 1. Cholelithiasis. 2. Thick-walled urinary bladder. 3. No evidence of diverticulitis or acute pathology within the abdomen or pelvis. Please see above discussion. This Pt has gotten significant relief of symptoms while in the ED. On last reassessment, vitals are wnl, pain is reasonably controlled, and exam is benign. Workup is not concerning for emergency-level pathology at this time. This Pt is appropriate for discharge with close outPt follow up. She comfortable with this plan and will follow up with her primary care provider in 1-3 days. Specific return precautions are discussed and they will come back to the ER if necessary. Discharge per resident note. Last Vital Signs Temp Pulse Resp BP Pulse Ox 98.2 F 77 18 135/77 99 02/23/20 08:55 02/23/20 08:55 02/23/20 08:55 02/23/20 08:55 02/23/20 08:55 Heart Score/ECG Review #1 02/23/20 12:21 Sinus bradycardia, rate 58, normal axis, LBBB, Sgarbossa negative. LBBB old compared to Dr. Munoz's office's most recent EKG for this patient (2019). Discharge - Discharge Information Problems reviewed: Yes Clinical Impression/Diagnosis: Abdominal pain Qualifiers: Abdominal location: unspecified location Qualified Code(s): R10.9 - Unspecified abdominal pain Condition: Improved Disposition: HOME - Admission No - Additional Discharge Information Prescriptions: Famotidine 20 mg PO DAILY #14 tablet Glycerin Suppository Adult - 1 each RC DAILY #14 supp.rect Famotidine [Pepcid -] 40 mg PO DAILY #7 tablet - Follow up/Referral Referrals: Hubert Crow MD [Primary Care Provider] - - Patient Discharge Instructions Patient Printed Discharge Instructions: DI for Abdominal Pain-Adult Additional Instructions: You were seen in the ER for abdominal pain and vomitting. You were given anti- nausea, anti-acid, and pain medication (tylenol), which improved your symptoms. Your labwork was normal. Your CT scan of your abdomen and pelvis showed no acute problem. It did show gallstones and thickened bladder wall, which you can follow up about with your primary care doctor. You were able to eat and drink and your pain improved, so you can safely go home. Please follow up with your primary care doctor within one week for these symptoms. We are prescribing Pepcid (famotidine) 20mg which you can take daily for 14 days, which may improve your symptoms. We are also prescribing glycerin suppositories, which may help you move your bowels better. Please return to the ER for continued or worsening symptoms, fever, chills, vomiting, chest pain, blood in you stool, or any other reason. - Post Discharge Activity
[2020-02-23 11:49] LABS: BASO % 0.6 % (0-2.0); EOS % 0.1 % (0-4.5); HEMATOCRIT 41.6 % (32.4-45.2); HEMOGLOBIN 13.4 GM/dL (10.7-15.3); LYMPH % 15.1 % (8-40); MCH 26.8 pg (25.7-33.7); MCHC 32.3 g/dl (32.0-36.0); MEAN CELL VOLUME 83.2 fl (80-96); MEAN PLT VOLUME 8.3 fl (7.5-11.1); MONO % 4.1 % (3.8-10.2); NEUT % 80.1 % (42.8-82.8); PLATELET COUNT 181 K/MM3 (134-434); RBC 5.01 M/mm3 (3.60-5.2); RDW 14.5 % (11.6-15.6); WHITE BLOOD COUNT 5.8 K/mm3 (4.0-10.0)
[2020-02-23 12:11] LABS: ALK PHOS 70 U/L (45-117); ANION GAP 8 MMOL/L (8-16); BILIRUBIN,TOTAL 0.6 mg/dL (0.2-1); BLOOD UREA NITROGEN 10.9 mg/dL (7-18); CALCIUM 10.4 mg/dL (8.5-10.1); CHLORIDE 105 mmol/L (98-107); CO2 26 mmol/L (21-32); CREATININE 0.7 mg/dL (0.55-1.3); GLUCOSE,RANDOM 106 mg/dL (74-106); LIPASE 121 U/L (73-393); SGOT/AST 20 U/L (15-37); SGPT/ALT 21 U/L (13-61); SODIUM 139 mmol/L (136-145); TOT PROT 8.6 g/dl (6.4-8.2)
--- NOTE | 2020-02-24 09:09 | EKG ---
Test Reason : Blood Pressure : / mmHG Vent. Rate : 058 BPM Atrial Rate : 058 BPM P-R Int : 160 ms QRS Dur : 130 ms QT Int : 450 ms P-R-T Axes : 058 025 067 degrees QTc Int : 441 ms SINUS BRADYCARDIA LEFT BUNDLE BRANCH BLOCK ABNORMAL ECG WHEN COMPARED WITH ECG OF 25-MAR-2003 09:43, LEFT BUNDLE BRANCH BLOCK IS NOW PRESENT Confirmed by Georgi Tompkins MD ([id number]) on 02/24/2020 9:08:47 AM Referred By: Confirmed By:Georgi Tompkins MD
== END 2020-02-23 15:45 | disposition home or self-care (01) ==
LOC: JER 08:50
PROC: 3E0333Z Introduction of Anti-inflammatory into Peripheral Vein, Percutaneous Approach (ICD-10-PCS; principal; 2020-02-23)
PROC: 3E033GC Introduction of Other Therapeutic Substance into Peripheral Vein, Percutaneous Approach (ICD-10-PCS; 2020-02-23)
DX: R10.9 Unspecified abdominal pain (principal)
CPT/HCPCS: 36415; 74177-TC; 80053; 81003; 82550; 83690; 84484; 85025; 87086; 93005; 93010; 99285-25; J0131; Q9967